=== PATIENT | male | born 1975 | race Caucasian/White ===

== ENCOUNTER 2025-06-09 01:06 | Emergency (ER) | payer BC ==
[~2025-06-09] VITALS: Ht 185.4 cm; Wt 94.2 kg
[~2025-06-09 01:06] MED LIST: LIDO1ADH93 TOP; METH-1164 PO; TRAL150S SQ
[2025-06-09 01:11] VITALS: TEMP 97.5
[2025-06-09 01:39] LABS: PLATELET COUNT, AUTOMATED 188 10^3/uL (150-450)
[2025-06-09 02:06] LABS: CALCIUM LEVEL 8.9 MG/DL (8.5-10.1); CARBON DIOXIDE LEVEL 30 MMOL/L (20-31); CHLORIDE LEVEL 105 MMOL/L (98-107); CREATININE FOR GFR 0.93 MG/DL (0.70-1.30); GLOMERULAR FILTRATION RATE > 90.0 (>56); POTASSIUM SERUM 4.7 MMOL/L (3.5-5.1); SODIUM LEVEL 142 MMOL/L (136-145)
[2025-06-09] MEDS: IBUPROFEN 600 MG TAB PO ONE (05:10)
[2025-06-09] MEDS: traMADol 50 MG TAB PO ONE (05:11)
[2025-06-09 06:00] VITALS: BP 153/89
[2025-06-09] MEDS ORDERED: AMOX875T2 PO (06:36)
[2025-06-09] MEDS ORDERED: IBUP600T42 PO (06:36)
[2025-06-09 06:51] VITALS: O2SAT 98
[2025-06-09] MEDS: AUGMENTIN 875 MG TAB PO ONE (07:02)
[2025-06-09] MEDS: traMADol 50 MG TAB (HOME DOSE PACK) PO ONE (07:03)
== END 2025-06-09 07:07 | disposition home or self-care (01) ==
LOC: M ED 01:06
DX: K08.89 Other specified disorders of teeth and supporting structures (principal); K02.9 Dental caries, unspecified; J34.1 Cyst and mucocele of nose and nasal sinus; K21.9 Gastro-esophageal reflux disease without esophagitis; Z79.1 Long term (current) use of non-steroidal anti-inflammatories (NSAID); Z79.2 Long term (current) use of antibiotics; Z79.899 Other long term (current) drug therapy